=== PATIENT | male | born 1945 | race African-American/Black ===

== ENCOUNTER 2024-08-07 14:11 | Inpatient (IN) | payer OTHER ==
[~2024-08-07] VITALS: Ht 160 cm; Wt 44.1 kg
[2024-08-07] MEDS ORDERED: METHYLPREDNISOLONE SOD SUCC 125MG/2ML (ACT-O-VIAL) IV STA (14:16)
[2024-08-07] MEDS: IPRATROPIUM BROMIDE (0.02%) 0.5MG/2.5ML NEB HHN STA (14:28)
[2024-08-07] MEDS: ALBUTEROL (0.083%) 2.5MG/3ML NEB HHN SCH (14:28)
[2024-08-07 14:36] VITALS: RESP 29
[2024-08-07] MEDS: METHYLPREDNISOLONE SOD SUCC 40MG/ML (ACT-O-VIAL) IV NR (14:54)
[2024-08-07 15:05] LABS: CHLORIDE 94 mEq/L (98-107); SODIUM 139 mEq/L (136-145)
[2024-08-07 15:06] LABS: BG BASE EXCESS 2.1 mmol/L (-2.0-3.0); BG DEOXYHEMOGLOBIN 0.3 % (0.0-5.0); BG FRACTION INSPIRED OXYGEN 100; BG HCO3 ACT 30.9 mmol/L (21.0-28.0); BG METHEMOGLOBIN 0.2 % (0.5-1.5); BG OXYGEN SATURATION 99.7 % (94.0-98.0); BG OXYHEMOGLOBIN 98.5 % (94.0-98.0); BG PCO2 68.2 mmHg (35.0-48.0); BG PH 7.274 (7.350-7.450); BG PO2 463.7 mmHg (83.0-108.0); BG SAMPLE SITE RIGHT RADIAL; BG TOTAL HEMOGLOBIN 13.9 g/dL (13.5-17.5); BG VENT MODE MASK - BIPAP
[2024-08-07 15:07] LABS: CALCIUM 9.5 mg/dL (8.7-10.4); CARBON DIOXIDE 29 mEq/L (21-32)
[2024-08-07 15:11] LABS: CREATININE 1.5 mg/dL (0.6-1.3)
[2024-08-07 15:12] LABS: GLUCOSE 245 mg/dL (70-105); UREA NITROGEN BLOOD 29 mg/dL (9-23)
[2024-08-07 15:29] LABS: TROPONIN I HIGH SENSITIVITY 58 ng/L (3.0-53)
[2024-08-07 15:30] LABS: LACTIC ACID 5.8 mmol/L (0.4-2.0)
[2024-08-07] MEDS: AZITHROMYCIN 500MG/250ML 250 ML IV NR (15:40)
[2024-08-07] MEDS: SODIUM CHLORIDE 0.9% (SEPSIS BOLUS) IV NR (15:40)
[2024-08-07] MEDS: CEFTRIAXONE 1GM/50ML 50 ML IV NR (16:45)
[2024-08-07 16:56] LABS: BASOPHILS % 0.2 % (0.0-2.0); HEMATOCRIT. 42.4 % (42.0-52.0); HEMOGLOBIN. 13.6 g/dL (14.0-18.0); LYMPHOCYTES % 9.1 % (20.0-50.0); MEAN CORPUSCULAR HEMOGLOBIN 27.1 pg (28.0-32.0); MEAN CORPUSCULAR VOLUME 84.6 fL (80.0-94.0); MEAN PLATELET VOLUME 9.4 fl (7.4-10.4); MONOCYTES % 12.3 % (2.0-8.0); NEUTROPHILS % 78.4 % (40.0-76.0); PLATELET 490 x1000/uL (130-400); RED BLOOD CELL COUNT 5.01 mill/uL (4.7-6.1); RED CELL DISTRIBUTION WIDTH 14.1 % (11.6-14.6); WHITE BLOOD COUNT 12.8 x1000/uL (4.5-11.0)
[2024-08-07 18:52] LABS: BG BASE EXCESS -0.4 mmol/L (-2.0-3.0); BG CARBOXYHEMOGLOBIN 0.1 % (0.5-1.5); BG DEOXYHEMOGLOBIN 1.6 % (0.0-5.0); BG FRACTION INSPIRED OXYGEN 40; BG HCO3 ACT 27.9 mmol/L (21.0-28.0); BG METHEMOGLOBIN 0.2 % (0.5-1.5); BG OXYGEN SATURATION 98.4 % (94.0-98.0); BG OXYHEMOGLOBIN 98.1 % (94.0-98.0); BG PCO2 63.4 mmHg (35.0-48.0); BG PH 7.262 (7.350-7.450); BG PO2 134.3 mmHg (83.0-108.0); BG SAMPLE SITE RIGHT RADIAL; BG TOTAL HEMOGLOBIN 12.9 g/dL (13.5-17.5); BG VENT MODE MASK - BIPAP
[2024-08-07] MEDS ORDERED: DEXTROSE 50% WATER 50ML SYRINGE IV PRN (19:15)
[2024-08-07] MEDS ORDERED: MAGNESIUM/ALUMINUM HYDROXIDE/SIMETHICONE 30ML UDC PO PRN (19:15)
[2024-08-07] MEDS ORDERED: MORPHINE SULFATE 2 MG/ML INJ (NOT FOR IM USE) IV PRN (19:15)
[2024-08-07] MEDS ORDERED: HYDROCODONE/ACETAMINOPHEN 5/325MG TABLET PO PRN (19:15)
[2024-08-07] MEDS ORDERED: ONDANSETRON HCL 4MG/2ML INJ IV PRN (19:15)
[2024-08-07] MEDS ORDERED: DOCUSATE SODIUM 100MG CAPSULE PO PRN (19:15)
[2024-08-07] MEDS ORDERED: IPRATROPIUM/ALBUTEROL 0.5-3(2.5)MG/3ML NEB HHN PRN (19:15)
[2024-08-07] MEDS ORDERED: ACETAMINOPHEN 325MG TABLET PO PRN ×2 (19:15)
[2024-08-07] MEDS ORDERED: GUAIFENESIN 200MG/10ML SUGAR FREE UDC PO PRN (19:15)
[2024-08-07] MEDS ORDERED: NALOXONE HCL 0.4MG/ML VIAL IV PRN (19:45)
[2024-08-07 20:09] LABS: CLARITY URINE CLEAR (CLEAR); GLUCOSE URINE NEGATIVE (NEGATIVE); KETONES URINE NEGATIVE (NEGATIVE); LEUKOCYTE ESTERASE URINE NEGATIVE (NEGATIVE); NITRITE URINE NEGATIVE (NEGATIVE); OCCULT BLOOD URINE 2+ (NEGATIVE); PH URINE 5.5 (4.5-8.0); PROTEIN URINE 2+ (NEGATIVE); UROBILINOGEN URINE 0.2 E.U./dL (0.2-1.0)
[2024-08-07] MEDS: SODIUM CHLORIDE 0.9% 1,000 ML IV SCH (20:09)
[2024-08-07] MEDS: GUAIFENESIN 200MG/10ML SUGAR FREE UDC PO NR (20:13)
[2024-08-07 20:30] LABS: SODIUM URINE RANDOM 52 mEq/L
[2024-08-07 20:36] LABS: OSMOLALITY URINE 316 mOsm/kg (500-850)
[2024-08-07 20:37] LABS: *AMPHETAMINES SCREEN URINE NEGATIVE (NEGATIVE)
[2024-08-07] MEDS: IPRATROPIUM/ALBUTEROL 0.5-3(2.5)MG/3ML NEB HHN NR (20:37)
[2024-08-07 20:38] VITALS: RESP 26
[2024-08-07 20:38] LABS: *BARBITURATES SCREEN URINE NEGATIVE (NEGATIVE); *BENZODIAZEPINES SCREEN URINE NEGATIVE (NEGATIVE); *COCAINE SCREEN URINE NEGATIVE (NEGATIVE); CANNABINOID URINE SCREEN NEGATIVE (NEGATIVE); ECSTASY MDMA SCREEN URINE NEGATIVE (NEGATIVE); METHADONE URINE SCREEN NEGATIVE (NEGATIVE); OPIATES URINE SCREEN NEGATIVE (NEGATIVE); PHENCYCLIDINE URINE SCREEN NEGATIVE (NEGATIVE)
[2024-08-07 20:41] LABS: COLOR URINE STRAW (YELLOW)
[2024-08-07 20:42] LABS: BACTERIA URINE NONE SEEN; COARSE GRANULAR CASTS URINE 0-5 /lpf; HYALINE CASTS URINE 0-5 /lpf; RBC URINE NONE SEEN /hpf (0-2); SQUAMOUS EPITHELIAL CELL URINE NONE SEEN /lpf (RARE/1+); WBC URINE 0-2 /hpf (0-2)
[2024-08-07 20:47] LABS: PHOSPHORUS 3.4 mg/dL (2.5-4.9)
[2024-08-07] MEDS: BLOOD SUGAR DIAGNOSTIC STRIP TEST SCH (21:00)
[2024-08-07] MEDS: INSULIN LISPRO 100 UNITS/ML SUBCUT SCH (21:00)
[2024-08-07 21:58] LABS: TROPONIN I HIGH SENSITIVITY 69 ng/L (3.0-53)
[2024-08-07] MEDS: METHYLPREDNISOLONE SOD SUCC 40MG/ML (ACT-O-VIAL) IV SCH (21:58)
[2024-08-07 22:00] VITALS: BP 179/85; PULSE 94; RESP 29; O2SAT 100
[2024-08-07] MEDS: CLONIDINE 0.1MG TABLET PO PRN (22:13)
[2024-08-07 22:19] VITALS: BP 149/110; PULSE 109; RESP 25; TEMP 37
[2024-08-08] VITALS (18 sets, daily range): BP systolic 101–181; BP diastolic 49–124; PULSE 55–101; RESP 15–27; TEMP 36.4–36.9; O2SAT 95–100
[2024-08-08] MEDS: IPRATROPIUM/ALBUTEROL 0.5-3(2.5)MG/3ML NEB HHN SCH (04:14)
[2024-08-08 06:05] LABS: HEMATOCRIT. 35.5 % (42.0-52.0); HEMOGLOBIN. 11.3 g/dL (14.0-18.0); MEAN CORPUSCULAR HGB CONC 31.9 g/dL (31.0-37.0); MEAN CORPUSCULAR VOLUME 84.7 fL (80.0-94.0); MEAN PLATELET VOLUME 8.7 fl (7.4-10.4); PLATELET 335 x1000/uL (130-400); RED BLOOD CELL COUNT 4.19 mill/uL (4.7-6.1); WHITE BLOOD COUNT 16.9 x1000/uL (4.5-11.0)
[2024-08-08 06:17] LABS: DIFFERENTIAL COMMENT 1
[2024-08-08] MEDS ORDERED: SODIUM CHLORIDE 0.9% 500 ML IV ONE (07:00)
[2024-08-08 07:03] LABS: CHLORIDE 105 mEq/L (98-107); POTASSIUM 3.8 mEq/L (3.5-5.1); SODIUM 144 mEq/L (136-145)
[2024-08-08 07:04] LABS: CALCIUM 8.2 mg/dL (8.7-10.4); CARBON DIOXIDE 29 mEq/L (21-32)
[2024-08-08 07:09] LABS: CREATININE 1.1 mg/dL (0.6-1.3); GLUCOSE 125 mg/dL (70-105); TRIGLYCERIDE 75 mg/dL (0-150); UREA NITROGEN BLOOD 24 mg/dL (9-23)
[2024-08-08 07:10] LABS: LDL CHOLESTEROL 86 mg/dL (5-100)
[2024-08-08 07:11] LABS: CHOLESTEROL 139 mg/dL (<200); CREATINE KINASE 285 IU/L (46-171); CREATINE KINASE MB FRACTION 7.5 ng/mL (0.5-3.6); HDL CHOLESTEROL 31 mg/dL (>55); TROPONIN I HIGH SENSITIVITY 39 ng/L (3.0-53)
[2024-08-08 07:15] LABS: THYROID STIMULATING HORMONE 0.34 uIU/mL (0.55-4.78)
[2024-08-08 07:59] LABS: T4 FREE 0.99 ng/dL (0.89-1.76)
[2024-08-08] MEDS ORDERED: BENZONATATE 100MG CAPSULE PO PRN (09:45)
[2024-08-08] MEDS ORDERED: BUDESONIDE 0.5MG/2ML NEB HHN SCH (10:00)
[2024-08-08] MEDS: ASPIRIN 81MG EC TABLET PO SCH (10:22)
[2024-08-08] MEDS: ENOXAPARIN 30MG/0.3ML SYR SUBCUT SCH (10:22)
[2024-08-08] MEDS: PANTOPRAZOLE SODIUM 40 MG/VIAL IV SCH (10:23)
[2024-08-08 11:40] LABS: BG BASE EXCESS -2.7 mmol/L (-2.0-3.0); BG DEOXYHEMOGLOBIN 7.6 % (0.0-5.0); BG FRACTION INSPIRED OXYGEN 36; BG HCO3 ACT 23.7 mmol/L (21.0-28.0); BG METHEMOGLOBIN 0.1 % (0.5-1.5); BG OXYGEN SATURATION 92.4 % (94.0-98.0); BG OXYHEMOGLOBIN 92.3 % (94.0-98.0); BG PCO2 47.4 mmHg (35.0-48.0); BG PH 7.316 (7.350-7.450); BG PO2 67.2 mmHg (83.0-108.0); BG SAMPLE SITE RIGHT BRACHIAL; BG TOTAL HEMOGLOBIN 12.6 g/dL (13.5-17.5); BG VENT MODE NASAL CANNULA
[2024-08-08 12:57] LABS: D-DIMER 1.18 mg/L FEU (<0.50); PROTHROMBIN TIME 11.1 sec (9.6-11.0)
[2024-08-08 12:59] LABS: ALANINE AMINOTRANSFERASE 17 IU/L (10-49); ALBUMIN 4.2 g/dL (3.2-4.8); ASPARTATE AMINOTRANSFERASE 22 IU/L (<34); BILIRUBIN DIRECT < 0.1 mg/dL (<=3.0); BILIRUBIN TOTAL 0.2 mg/dL (0.1-1.0); PROTEIN TOTAL 7.3 g/dL (6.0-8.3)
[2024-08-08 13:11] LABS: IRON 34 ug/dL (65-175)
[2024-08-08 13:14] LABS: TOTAL IRON BINDING CAPACITY 497 ug/dl (250-425)
[2024-08-08] MEDS ORDERED: AZITHROMYCIN 500MG/250ML 250 ML IV SCH (15:00)
[2024-08-08] MEDS: CEFTRIAXONE 1GM/50ML 50 ML IV SCH (15:26)
[2024-08-08] MEDS: AZITHROMYCIN 500MG/250ML 250 ML IV SCH (15:26)
[2024-08-08 15:55] LABS: PLATELET ESTIMATE NORMAL
[2024-08-08] MEDS ORDERED: CEFTRIAXONE 1GM/50ML 50 ML IV SCH (16:00)
[2024-08-08] MEDS: AMLODIPINE 10MG TABLET PO SCH (19:10)
[2024-08-08 21:08] LABS: INFLUENZA TYPE A Presumptive Negative (Pres. Neg.)
[2024-08-08 21:09] LABS: INFLUENZA TYPE B Presumptive Negative (Pres. Neg.)
[2024-08-08 21:10] LABS: RESPIRATORY SYNCYTIAL VIRUS Not Detected (Not Detectd)
[2024-08-09] MEDS ORDERED: FERROUS SULFATE 325MG TABLET PO SCH (08:00)
== END 2024-08-09 00:03 | disposition short-term general hospital (02) | DRG 871 ==
LOC: ER 14:11 → EDBEDREQ 18:24 → EDBEDREQTM 18:24 → ENRESERV 20:21 → 5EST 21:52
PROVIDERS: ADMIT Hospitalist; ATTEND Hospitalist
PROC: 5A09357 Assistance with Respiratory Ventilation, Less than 24 Consecutive Hours, Continuous Positive Airway Pressure (ICD-10-PCS; principal; 2024-08-07)
PROC: 5A09357 Assistance with Respiratory Ventilation, Less than 24 Consecutive Hours, Continuous Positive Airway Pressure (ICD-10-PCS; 2024-08-08)
DX: A41.9 Sepsis, unspecified organism (principal); I21.A1 Myocardial infarction type 2; J18.9 Pneumonia, unspecified organism; J96.01 Acute respiratory failure with hypoxia; N17.0 Acute kidney failure with tubular necrosis; J96.02 Acute respiratory failure with hypercapnia; J44.0 Chronic obstructive pulmonary disease with (acute) lower respiratory infection; J44.1 Chronic obstructive pulmonary disease with (acute) exacerbation; D64.9 Anemia, unspecified; N18.31 Chronic kidney disease, stage 3a; E05.90 Thyrotoxicosis, unspecified without thyrotoxic crisis or storm; I12.9 Hypertensive chronic kidney disease with stage 1 through stage 4 chronic kidney disease, or unspecified chronic kidney disease; N40.0 Benign prostatic hyperplasia without lower urinary tract symptoms; R73.03 Prediabetes; F17.210 Nicotine dependence, cigarettes, uncomplicated; Z79.82 Long term (current) use of aspirin; Z86.13 Personal history of malaria
CPT/HCPCS: 31720; 36415; 36600; 71045; 76770; 80048; 80061; 80076; 80305; 81003; 82306; 82375; 82550; 82553; 82728; 82805; 82962; 83036; 83540; 83550; 83605; 83735; 83880; 83930; 83935; 84100; 84145; 84300; 84439; 84443; 84484; 85025; 85379; 87070; 87420; 87804; 93005; 93970; 94070; 94640; 94660; 94664; 96365; 96367; 96375; 97162; 97166; 97530; 98960; J0456; J0696; J1650; J1815; J2470; J2919